=== PATIENT | female | born 1985 | race Hispanic/Latino ===

== ENCOUNTER 2023-09-15 14:07 | Emergency (ER) | payer BC ==
[~2023-09-15] VITALS: Ht 160 cm; Wt 77.1 kg
[~2023-09-15 14:07] MED LIST: CETI10TA57 PO; FLUT16H NS; IBUP-2784 PO; NAPR-1180 PO
[2023-09-15 15:12] LABS: APPEARANCE,URINE CLEAR (CLEAR); BILIRUBIN,URINE NEGATIVE (NEGATIVE); COLOR,URINE LIGHT-YELLOW (YELLOW); GLUCOSE, URINE (UA) NEGATIVE (NEGATIVE); KETONES,URINE NEGATIVE (NEGATIVE); LEUKOCYTE ESTERASE ,URINE NEGATIVE Leu/uL (NEGATIVE); NITRATE,URINE NEGATIVE (NEGATIVE); PROTEIN,URINE NEGATIVE (NEGATIVE); UROBILINOGEN,URINE 0.2 mg/dL (0.2-1.0)
[2023-09-15 15:13] LABS: HCG,QUALITATIVE URINE NEGATIVE (NEGATIVE)
[2023-09-15 15:14] LABS: ADD UA MICROSCOPIC YES
[2023-09-15 15:15] LABS: MUCUS,URINE RARE LPF (None Seen); RBC,URINE 0-1 /HPF (0-1); SQUAMOUS EPITHELIAL CELL,UR RARE /HPF (0-2); WBC,URINE 0-1 /HPF (0-1)
[2023-09-15] MEDS: 0.9%NACL 1000ML 1,000 ML IV ONE (15:56)
[2023-09-15] MEDS: MORPHINE 2 MG SYG IVP ONE (15:56)
[2023-09-15] MEDS: ONDANSETRON 4MG INJ IVP ONE (15:56)
[2023-09-15 16:06] LABS: BASOPHILS # (AUTO) 0.05 K/uL (0.00-0.20); BASOPHILS % (AUTO) 0.6 % (0.0-5.0); EOSINOPHILS # (AUTO) 0.67 K/uL (0.00-0.70); EOSINOPHILS % (AUTO) 8.6 % (0.0-8.0); HEMATOCRIT 36.8 % (36-48); IMMATURE GRANULOCYTE ABSOLUTE 0.02 K/uL (0-1); LYMPHOCYTES # (AUTO) 1.8 K/uL (1.0-4.8); LYMPHOCYTES % (AUTO) 23.1 % (21.0-51.0); MEAN CORPUSCULAR HEMOGLOBIN 26.5 pg (27.0-33.0); MEAN CORPUSCULAR HGB CONC 32.6 g/dL (32.0-36.0); MEAN CORPUSCULAR VOLUME 81.4 fL (79-99); MONOCYTES # (AUTO) 0.5 K/uL (0.1-1.0); MONOCYTES % (AUTO) 6.9 % (3.0-13.0); NEUTROPHILS # (AUTO) 4.7 K/uL (1.8-7.7); NEUTROPHILS % (AUTO) 60.5 % (40.0-77.0); PLATELET COUNT (AUTO) 258 K/uL (130-400); RED BLOOD CELL COUNT(AUTO) 4.52 MIL/uL (4.00-5.50); RED CELL DISTRIBUTION WIDTH 14.4 % (11.0-15.5); WHITE BLOOD COUNT (AUTO) 7.8 K/uL (4.8-10.8)
[2023-09-15 16:15] LABS: CREATININE 0.6 mg/dL (0.5-1.0); POTASSIUM 4.5 mmol/L (3.5-5.1)
[2023-09-15 16:19] LABS: ALBUMIN 3.5 g/dL (3.5-5.0); BILIRUBIN,TOTAL 0.3 mg/dL (0.2-1.0); TOTAL PROTEIN, SERUM 7.9 g/dL (6.0-8.3)
[2023-09-15] MEDS: MAG/ALUM/SIMETH 30 ML UDCUP PO ONE (16:53)
[2023-09-15] MEDS: LIDOCAINE HCL 2% VISCOUS 15 ML UDCUP PO ONE (16:54)
[2023-09-15] MEDS: DICYCLOMINE HCL 10 MG/5 ML ML PO ONE (16:54)
[2023-09-15] MEDS ORDERED: OMEP40CA21 PO (17:39)
[2023-09-15 17:53] VITALS: BP 115/61; PULSE 72; RESP 16; O2SAT 100
== END 2023-09-15 17:57 | disposition home or self-care (01) ==
LOC: EDH 14:07
DX: S39.012A Strain of muscle, fascia and tendon of lower back, initial encounter (principal); Z90.49 Acquired absence of other specified parts of digestive tract; X58.XXXA Exposure to other specified factors, initial encounter; Y93.89 Activity, other specified; Y92.89 Other specified places as the place of occurrence of the external cause; Y99.8 Other external cause status
CPT/HCPCS: 99284; 74176; 96374; 96375; 80053; 83690; 85025; 81001; 81025; 36415; J2270; J7030; J2405